=== PATIENT | male | born 1940 | race Caucasian/White ===

== ENCOUNTER 2016-10-06 08:51 | Outpatient (CLI) | payer BC, MEDICARE | END 2016-10-06 08:52 | disposition home or self-care (01) | LOC: BURLAB 08:51 | PROVIDERS: ATTEND Internal Medicine Cardiovascular Disease | DX: Z51.81 Encounter for therapeutic drug level monitoring (principal); Z79.899 Other long term (current) drug therapy | CPT/HCPCS: 36415; 80061; 84450; 84460 ==